=== PATIENT | female | born 1955 | race Caucasian/White ===

== ENCOUNTER → 2016-05-01 | Day surgery (SDC) | payer OTHER, MEDICAID ==
[~2016-05-01] MED LIST: BACITRACIN 50,000 UNITS/10 ML SYR IRR ONE; BUPIVACAINE/EPI 0.25% 30 ML SDV ONE; DEXAMETHASONE 4 MG/ML VIAL ONE; LIDOCAINE 1% 5 ML SDV ONE; LIDOCAINE 2% 5 ML SDV ONE; MEPERIDINE 25 MG/ML SYR ONE; MIDAZOLAM 2 MG/2 ML VIAL ONE; ONDANSETRON 4 MG/2 ML VIAL ONE; PROPOFOL/EMULSION 500 MG/50 ML BOTTLE IV ONE; ROCURONIUM 50 MG/5 ML VIAL ONE; SUGAMMADEX SODIUM 200 MG/2 ML VIAL IVP ONE; ceFAZolin 2 GM/DEXTROSE 100 ML IV ONE; fentaNYL 250 MCG/5 ML INJ ONE
[2016-05-01 07:05] LABS: % IMMATURE GRANULYOCYTES 0.2 % (0.0-1.1); ABSOLUTE IMMATURE GRANULOCYTES 0.01 10^3/uL (0.00-0.10); ADD DIFF? NO; ADD MORPH? NO; ADD SCAN? NO; ATYPICAL LYMPHOCYTE FLAG 0 (0-99); FRAGMENT RBC FLAG 0 (0-99); HEMATOCRIT 44.8 % (38.0-47.0); HEMOGLOBIN 15.6 g/dL (12.6-16.3); LEFT SHIFT FLG 0 (0-99); LIPEMIA HEMOLYSIS FLAG 90 (0-99); MEAN CELL HEMOGLOBIN 30.8 pg (27.9-34.1); MEAN CELL HEMOGLOBIN CONCENTR. 34.8 g/dL (32.4-36.7); MEAN CELL VOLUME 88.5 fL (81.5-99.8); PLATELET CLUMPS FLAG 0 (0-99); PLATELET COUNT 298 10^3/uL (150-400); RED BLOOD CELL COUNT 5.06 10^6/uL (4.18-5.33); RED CELL DISTRIBUTION WIDTH 12.4 % (11.5-15.2)
[2016-05-01 07:15] LABS: INR 1.01 (0.83-1.16); PROTIME(PATIENT) 13.2 SEC (12.0-15.0)
[2016-05-01 07:16] LABS: APTT 26.4 SEC (23.0-38.0)
[2016-05-01 07:23] LABS: ANION GAP 11 mEq/L (8-16); CALCIUM 9.8 mg/dL (8.5-10.4); CARBON DIOXIDE 22 mEq/l (22-31); CHLORIDE 109 mEq/L (97-110); CREATININE 0.8 mg/dL (0.6-1.0); GLOMERULAR FILTRATION RATE > 60; GLUCOSE 100 mg/dL (70-100); POTASSIUM 4.2 mEq/L (3.5-5.2); SODIUM 142 mEq/L (134-144)
--- NOTE | 2016-05-01 08:47 | GOP ---
DATE OF OPERATION: SURGEON: Haritha Worthy DO NEUROSURGEON: Haritha Worthy DO. CABLE WORKER HELPER: LEONA Toth. PREOPERATIVE DIAGNOSIS: 1. Chronic pain. 2. Failed occipital nerve stimulation. POSTOPERATIVE DIAGNOSIS: 1. Chronic pain. 2. Failed occipital nerve stimulation. PROCEDURE PERFORMED: Removal of occipital nerve stimulator leads x2 and removal of generator. FINDINGS: SPECIMENS: None. ESTIMATED BLOOD LOSS: 10 mL. INDICATIONS: This is a 60-year-old female with an indwelling occipital nerve stimulator on the [facility] t side with 2 percutaneous style leads to a generator, who states that her pain has completely resol matt after stimulation. She has had the stimulator off over 4 months and has no increase in her pain . She elected to have the stimulator removed. DESCRIPTION OF PROCEDURE: She was identified, consented, sites were marked, brought to the operatin g room, anesthetized under general endotracheal tube anesthesia, rolled onto the OR bed with chest r olls. All pressure points were appropriately padded. Incision sites were marked. Hair was clipped with the OR clippers. She was prepped and draped in the usual sterile fashion. Incisions were ane sthetized with 0.5% Marcaine with epinephrine. Incision was made at the hip with a 10 blade and at the posterior cervical region with a 10 blade and using a plasma blade, we dissected out the generat or and the leads and anchors. All contacts on the leads were visualized to be complete. The leads were cut at the distal end and the intervening incision was anesthetized and opened with a 10 blade. We were able to pull the leads down and out. There were, however, anchors that had migrated infer iorly. A second incision was made over the anchors which were located with x-ray after anesthetizin g with 0.5% Marcaine with epinephrine and the connectors were dissected out. We cut all the leads a nd removed the entire system, visualized all parts of the entire system and complete removal. We th en copiously irrigated each incision with over a liter of bacitracin-infused saline. Each incision was closed with 2-0 Vicryl popoffs subcutaneous, 3-0 Vicryl popoffs cutaneous, and a 3-0 running nyl on at the skin. The generator pocket deep tissue was closed with 2-0 Vicryl popoffs in the deep tis gal and then subcutaneous 2-0 Vicryl popoffs, 3-0 Vicryl popoffs and 3-0 running nylon. All wounds were dressed with Xeroform gauze and Medipore tape. The patient tolerated the procedure well. No c omplications. FLUID: 700 mL of crystalloid. URINE OUTPUT: None. DRAINS: None. COMPLICATIONS: None. /[id number]/MODL
== END | disposition home or self-care (01) ==
LOC: FSGY 05:49
PROVIDERS: ATTEND Neurological Surgery
PROC: 00P Central Nervous System and Cranial Nerves, Removal (ICD-10-PCS; principal; 2016-05-01 07:15)
PROC: 0JPT0MZ Removal of Stimulator Generator from Trunk Subcutaneous Tissue and Fascia, Open Approach (ICD-10-PCS; principal; 2016-05-01 07:15)
DX: T85.890A Other specified complication of nervous system prosthetic devices, implants and grafts, initial encounter (principal); G89.4 Chronic pain syndrome; Z45.89 Encounter for adjustment and management of other implanted devices; M54.81 Occipital neuralgia
CPT/HCPCS: J0690; J1100; J2250; J2405; J2704; J3010